=== PATIENT | female | born 1950 | race African-American/Black ===

== ENCOUNTER → 2016-07-09 | Outpatient (CLI) | payer MEDICARE | LOC: RAD 17:08 | PROVIDERS: ATTEND Internal Medicine Medical Oncology | DX: C91.10 Chronic lymphocytic leukemia of B-cell type not having achieved remission (principal) | CPT/HCPCS: 78815; A9552 ==

== ENCOUNTER 2018-09-03 12:46 | Emergency (ER) | payer MEDICARE ==
[2018-09-03 13:57] LABS: AMORPHOUS SEDIMENT,URINE TRACE /HPF; APPEARANCE,URINE SLIGHTLY-CLOUDY; BILIRUBIN,URINE NEGATIVE (NEGATIVE); COLOR,URINE YELLOW; GLUCOSE, URINE NEGATIVE (NEGATIVE); KETONES,URINE NEGATIVE (NEGATIVE); LEUKOCYTE ESTERASE,URINE NEGATIVE (NEGATIVE); NITRITE,URINE NEGATIVE (NEGATIVE); PROTEIN,URINE 30 mg/dL (NEGATIVE); URINE SPECIFIC GRAVITY 1.021
--- NOTE | 2018-09-03 14:27 | ER Document Report ---
ED General - General Chief Complaint: Weakness Stated Complaint: WEAKNESS Time Seen by Provider: 09/03/18 14:21 Primary Care Provider: VINCENZO MUSE MD [Primary Care Provider] - 09/05/18 Notes: Patient says she was referred here to be seen because she is losing too much weight. Patient has history of chronic lymphocytic leukemia and sees Dr. Chavarria. She had an appointment today to have an infusion but they sent her here because they said she had lost too much weight. Patient says that she weighed 113 pounds when she was seen at that office on August 06. Today here in the emergency department, patient weighs about 106. Patient says that she was told by Dr. Chavarria that she has lost 20 pounds since March. Patient was scheduled for her infusion again today, but they would not give it to her and sent her here. Patient says she is been coughing up a lot of cold for the past couple of months. Denies any urinary tract symptoms. Denies any fever. TRAVEL OUTSIDE OF THE [place] IN LAST 30 DAYS: No - Related Data Allergies/Adverse Reactions: No Known Allergies Allergy (Verified 09/03/18 12:47) Past Medical History - Social History Smoking Status: Current Every Day Smoker Family History: Reviewed & Not Pertinent, DM - Past Medical History Cardiac Medical History: Reports: Hx Hypercholesterolemia, Hx Hypertension Pulmonary Medical History: Reports: Hx COPD Malignancy Medical History: Reports: Hx Leukemia - Chronic lymphocytic leukemia Past Surgical History: Reports: Hx Gynecologic Surgery - ectopic , Hx Hysterectomy, Hx Vascular Surgery - PORT A CATH - Immunizations Hx Diphtheria, Pertussis, Tetanus Vaccination: Yes Review of Systems - Review of Systems Notes: REVIEW OF SYSTEMS: CONSTITUTIONAL : Denies fever. Says she does feel weak all over. EENT: Denies eye, ear, nose or mouth or throat pain or other symptoms. CARDIOVASCULAR: Denies chest pain. RESPIRATORY: Patient has a chronic cough and production of phlegm for a couple of months. GASTROINTESTINAL: Denies abdominal pain or nausea, vomiting, or diarrhea. GENITOURINARY: Denies difficulty or painful urinating, urinary frequency, blood in urine. MUSCULOSKELETAL: Denies back or neck pain. Denies joint pain or swelling. SKIN: Denies rash or skin lesions. NEUROLOGICAL: Denies LOC or altered mental status. Denies headache. Denies sensory loss or motor deficits. ALL OTHER SYSTEMS REVIEWED AND NEGATIVE. Physical Exam - Vital signs Vitals: Temp Pulse Resp BP Pulse Ox 98.0 F 102 H 20 110/73 94 09/03/18 13:10 09/03/18 13:10 09/03/18 13:10 09/03/18 13:10 09/03/18 13:10 Interpretation: Normal Notes: PHYSICAL EXAMINATION: GENERAL: Well-appearing, in no acute distress. Very thin, cachectic looking. Vital signs are all normal. HEAD: Atraumatic, normocephalic. EYES: Pupils equal round and reactive to light, extraocular movements intact. ENT: oropharynx clear without exudates. Moist mucous membranes. NECK: Normal range of motion, supple. LUNGS: Breath sounds decreased bilaterally. Port in left upper chest. HEART: Regular rate and rhythm without murmurs. ABDOMEN: Soft, nontender. No guarding or rebound. No masses. Almost emaciated extremities and body. BACK: No tenderness throughout entire back. EXTREMITIES: Normal range of motion without pain. Is able to stand and walk. PSYCH: Normal mood, normal affect. SKIN: Warm, dry, no rashes. Course - Re-evaluation Re-evalutation: 09/03/18 17:40 Discussed the patient with her primary care provider, Dr. Muse. She has an appointment to see him in a couple of days in the office. No further workup requested. - Vital Signs Vital signs: Temp Pulse Resp BP Pulse Ox 98.0 F 85 19 121/84 94 09/03/18 13:10 09/03/18 15:43 09/03/18 17:31 09/03/18 17:31 09/03/18 17:31 - Laboratory Result Diagrams: 09/03/18 15:11 09/03/18 15:11 Laboratory results interpreted by me: 09/03/18 09/03/18 09/03/18 13:35 15:11 15:11 WBC 28.0 H RDW 16.0 H Seg Neuts % (Manual) 13 L Lymphocytes % (Manual) 75 H Abs Lymphs (Manual) 22.7 H Abs Monocytes (Manual) 1.7 H Est GFR (Non-Af Amer) 52 L Calcium 11.1 H Urine Protein 30 H Urine Urobilinogen 2.0 H Discharge - Discharge Clinical Impression: Weight loss, Chronic lymphocytic leukemia Condition: Stable Disposition: HOME, SELF-CARE Additional Instructions: Weight loss: You were evaluated today for weight loss over the past several months. NORMAL EXAM AND WORKUP: At this time, except for your elevated white cell count from your leukemia, your examination and workup show no significant abnormality. No significant abnormal physical findings were noted. All laboratory, EKG, and imaging (x-ray, CT scans, ultrasound) studies that were ordered show no significant abnormality. Although your examination and all studies that were ordered showed no significant abnormal finding, there are no examinations and no studies that are 100% accurate. There is always the possibility that some abnormality could exist and not be detected with physical examination or within the limits and capabilities of laboratory and other studies. You should return or follow up as you were instructed on your visit today for further evaluation if your symptoms do not resolve. FOLLOW-UP CARE: If you have been referred to a physician for follow-up care, call the physicians office for an appointment as you were instructed or within the next two days. If you experience worsening or a significant change in your symptoms, notify the physician immediately or return to the Emergency Department at any time for re-evaluation. I spoke with Dr. Muse, patient's primary care provider, he will follow-up as an outpatient. Referrals: VINCENZO MUSE MD [Primary Care Provider] - 09/05/18
--- NOTE | 2018-09-03 15:18 | RADIOLOGY REPORT (SQ) ---
EXAM DESCRIPTION: CHEST 2 VIEWS COMPLETED DATE/TIME: 09/03/2018 3:05 pm REASON FOR STUDY: Weight loss and productive cough COMPARISON: PET-CT of 07/09/2016 Two-view chest 07/21/2015 EXAM PARAMETERS: NUMBER OF VIEWS: two views TECHNIQUE: Digital Frontal and Lateral radiographic views of the chest acquired. RADIATION DOSE: NA LIMITATIONS: none FINDINGS: LUNGS AND PLEURA: Lungs are hyperinflated with flattening in the hemidiaphragms. No acute infiltrates. No pleural effusion. No pneumothorax. MEDIASTINUM AND HILAR STRUCTURES: No masses or contour abnormalities. HEART AND VASCULAR STRUCTURES: Heart normal size. No evidence for failure. BONES: Old healed left posterior upper rib fractures HARDWARE: Left-sided permanent central line tip superior vena cava OTHER: No other significant finding. IMPRESSION: No acute findings TECHNICAL DOCUMENTATION: JOB ID: [id number] [employer]- All Rights Reserved Reading location - IP/workstation name: [email or web address]
[2018-09-03 15:27] LABS: HEMATOCRIT 43.6 % (36.0-47.0); HEMOGLOBIN 14.7 g/dL (12.0-15.5); MEAN CORPUSCULAR HEMOGLOBIN 31.6 pg (27.0-33.4); MEAN CORPUSCULAR HGB CONC 33.6 g/dL (32.0-36.0); MEAN CORPUSCULAR VOLUME 94 fl (80-97); PLATELET COUNT 190 10^3/uL (150-450); RED BLOOD COUNT 4.64 10^6/uL (3.72-5.28)
[2018-09-03 15:42] LABS: ABSOLUTE LYMPHOCYTES# (MANUAL) 22.7 10^3/uL (0.5-4.7); ABSOLUTE MONOCYTES # (MANUAL) 1.7 10^3/uL (0.1-1.4); ABSOLUTE NEUTROPHILS# (MANUAL) 3.6 10^3/uL (1.7-8.2); BASOPHILS % (MANUAL) 0 % (0-2); EOSINOPHILS % (MANUAL) 0 % (0-6); MONOCYTES % (MANUAL) 6 % (3-13); SEGMENTED NEUTROPHILS % (MAN) 13 % (42-78); TOTAL CELLS COUNTED 100
[2018-09-03 15:43] LABS: ANISOCYTOSIS 1+; PLATELET COMMENT ADEQUATE; TOXIC GRANULATION SLIGHT
[2018-09-03 15:44] LABS: LYMPHOCYTES % (MANUAL) 75 % (13-45)
[2018-09-03 15:57] LABS: ALANINE AMINOTRANSFERASE 14 U/L (9-52); ALKALINE PHOSPHATASE 89 U/L (38-126); ANION GAP 12 (5-19); ASPARTATE AMINO TRANSFERASE 23 U/L (14-36); BILIRUBIN,DIRECT 0.3 mg/dL (0.0-0.4); BILIRUBIN,TOTAL 0.6 mg/dL (0.2-1.3); BLOOD UREA NITROGEN 16 mg/dL (7-20); CALCIUM 11.1 mg/dL (8.4-10.2); CARBON DIOXIDE 25 mmol/L (22-30); CHLORIDE 105 mmol/L (98-107); CREATINE KINASE 37 U/L (30-135); GLUCOSE 88 mg/dL (75-110); POTASSIUM 3.8 mmol/L (3.6-5.0); SODIUM 141.5 mmol/L (137-145); TOTAL PROTEIN 6.3 g/dL (6.3-8.2)
[2018-09-03 16:01] LABS: CREATINE KINASE MB 0.95 ng/mL (<4.55); TROPONIN I < 0.012 ng/mL
--- NOTE | 2018-09-03 16:02 | EKG REPORT ---
SEVERITY:- ABNORMAL ECG - SINUS RHYTHM LOW VOLTAGE IN FRONTAL LEADS CONSIDER ANTEROSEPTAL INFARCT NONSPECIFIC T ABNORMALITIES, LATERAL LEADS : Confirmed by: Ryan Davenport MD 03-Sep-2018 16:01:26
[2018-09-03 17:35] VITALS: BP 121/84
[2018-09-04 11:01] LABS: PATH REVIEW PATHOLOGIST REVIEWED
== END 2018-09-03 17:58 | disposition home or self-care (01) ==
LOC: ER 12:46
DX: C91.10 Chronic lymphocytic leukemia of B-cell type not having achieved remission (principal); R63.4 Abnormal weight loss; R53.1 Weakness; F17.200 Nicotine dependence, unspecified, uncomplicated; I10 Essential (primary) hypertension; J44.9 Chronic obstructive pulmonary disease, unspecified
CPT/HCPCS: 36415; 36591; 71046; 80053; 81001; 82550; 82553; 84484; 85025; 87040; 93005; 93010; 99284

== ENCOUNTER → 2018-11-10 | Outpatient (CLI) | payer MEDICARE ==
--- NOTE | 2018-11-11 09:01 | RADIOLOGY REPORT (SQ) ---
EXAM DESCRIPTION: PET CT SKULL/THIGH COMPLETED DATE/TIME: 11/11/2018 4:05 am REASON FOR STUDY: (C91.90) LYMPHOID LEUKEMIA, UNSPECIFIED NOT HAVING ACHIEVED REMISSION C91.90 LYMP HOID LEUKEMIA, UNSPECIFIED NOT HAVING ACHIEVED RE COMPARISON: 07/09/2016 RADIONUCLIDE AND DOSE: 9.68 mCi F18 FDG The route of agent administration: Intravenous FASTING BLOOD SUGAR: 105 mg/dl CONTRAST TYPE AND DOSE: No CT contrast given. TECHNIQUE: Blood glucose level was verified. Above dose of FDG was injected intravenously. 2-D seg mented attenuation correction images were obtained from the base of the skull to the midthighs. Nonc ontrast CT images were obtained for attenuation correction and fusion with emission images. CT image s were performed without oral or intravenous contrast and are not sensitive for parenchymal lesions. A series of overlapping emission PET images were obtained. Images reviewed and manipulated at [facility] work station by the radiologist. Images stored on PACS. LIMITATIONS: None. FINDINGS: HEAD AND NECK: No areas of abnormal metabolic activity in the soft tissues of the head and neck. CHEST: Approximately 2.2 x 3.8 cm conglomerate level 1 nodes not present on the prior. 1.7 SUV. 2 cm paraesophageal node, 1.8 SUV. Enlarged axillary nodes, largest on the left 1 x 1.6 cm, 1.3 SUV. ABDOMEN AND PELVIS: Upper abdominal and retroperitoneal adenopathy, difficult to quantify morphologic ally due to indistinct tissue planes. SUVs in the 3.2 range. PROXIMAL LOWER EXTREMITIES: No areas of abnormal metabolic activity in the soft tissues of the lower extremities. BONES: Nothing acute. ADDITIONAL CT FINDINGS: Diffuse diverticulosis. Normal size spleen. OTHER: Liver activity 1.9 SUV. Blood pool 1.5 SUV. IMPRESSION: Worrisome for recurrent lymphoma. Adenopathy above and below the diaphragm with relativ pro low SUVs in the chest. TECHNICAL DOCUMENTATION: JOB ID: [id number] [employer]- All Rights Reserved Reading location - IP/workstation name: [email or web address]
== END ==
LOC: RAD 16:14
PROVIDERS: ATTEND Internal Medicine Medical Oncology
DX: C91.90 Lymphoid leukemia, unspecified not having achieved remission (principal)
CPT/HCPCS: 78815; A9552

== ENCOUNTER → 2019-07-31 | Outpatient (CLI) | payer MEDICARE ==
--- NOTE | 2019-08-01 12:08 | XCELERA REPORT ---
[address] [place] [facility] [address] Lower Extremity Venous Evaluation Procedure: Color flow and duplex imaging of the veins of the left lower extremity as well as the right Common Femoral vein. Right Sided Venous Evaluation The right common femoral vein is fully compressible. Spontaneous and phasic flow is present in the right common femoral vein. Left Sided Venous Evaluation Normal vessel filling wall to wall, compression and augmentation as well as Colour flow down to the infrageniculate veins. Interpretation Summary No duplex evidence of DVT or obstruction in the left lower extremity nor in the right Common Femoral vein. Name: NOELLE LOWRY Age: 68 yrs Gender: Female : 1950 Patient Status: Outpatient Patient Location: Study Date: 07/31/2019 03:24 PM Reason For Study: LLE PAIN/SWELLING Ordering Physician: SARAH LEAL Performed By: Marcus Rodriguez : SARAH LEAL > Luis Stapleton
== END ==
LOC: SP 14:34
PROVIDERS: ATTEND Nurse Practitioner Family
DX: M79.605 Pain in left leg (principal); M79.89 Other specified soft tissue disorders
CPT/HCPCS: 93971

== ENCOUNTER 2019-09-30 17:07 | Emergency (ER) | payer MEDICARE ==
--- NOTE | 2019-09-30 17:27 | ER Document Report ---
ED Respiratory Problem - General Chief Complaint: Breathing Difficulty Stated Complaint: BREATHING DIFFICULTY Time Seen by Provider: 09/30/19 17:25 Primary Care Provider: SARAH LEAL FNP-C [Primary Care Provider] - Follow up as needed Notes: 68-year-old woman presents to the emergency department with a history of COPD, CLL, hypertension, dyslipidemia, and chemotherapy for leukemia. She presents today with shortness of breath and increased work of breathing. She denies chest pain, palpitations or nausea and vomiting. TRAVEL OUTSIDE OF THE [place] IN LAST 30 DAYS: No - Related Data Allergies/Adverse Reactions: No Known Allergies Allergy (Verified 09/03/18 12:47) Past Medical History - Social History Smoking Status: Unknown if Ever Smoked Family History: Reviewed & Not Pertinent, DM - Past Medical History Cardiac Medical History: Reports: Hx Hypercholesterolemia, Hx Hypertension Pulmonary Medical History: Reports: Hx COPD Renal/ Medical History: Denies: Hx Peritoneal Dialysis Malignancy Medical History: Reports: Hx Leukemia - Chronic lymphocytic leukemia Past Surgical History: Reports: Hx Gynecologic Surgery - ectopic , Hx Hysterectomy, Hx Vascular Surgery - PORT A CATH - Immunizations Hx Diphtheria, Pertussis, Tetanus Vaccination: Yes Review of Systems - Review of Systems Notes: Constitutional: Negative for fever. HENT: Negative for sore throat. Eyes: Negative for visual changes. Cardiovascular: Negative for chest pain. Respiratory + shortness of breath. Gastrointestinal: Negative for abdominal pain, vomiting or diarrhea. Genitourinary: Negative for dysuria. Musculoskeletal: Negative for back pain. Skin: Negative for rash. Neurological: Negative for headaches, weakness or numbness. 10 point ROS negative except as marked above and in HPI. Physical Exam - Vital signs Vitals: Resp 21 H 09/30/19 17:11 - Notes Notes: PHYSICAL EXAMINATION: Physical Exam: General: Thin chronically ill-appearing 68-year-old woman + respiratory distress HEENT: NC/AT, pupils equal round and reactive to light, MM moist,nares clear, oropharynx clear, airway patent Neck: supple, no adenopathy, no masses. Good range of motion Lungs: Mild wheezing bilaterally, increased work to breathe, use of accessory muscles of respiration. CVS: Regular rate and rhythm no murmur gallop or rub Abdomen: Soft, active, nontender, no masses, no hepatosplenomegaly Ext: No edema, clubbing or cyanosis. Neuro: Alert and responsive, moving all 4 extremities on command, cranial nerves intact, no focal findings Skin: Intact no open lesions, no rash PSYCH: Normal mood, normal affect. Course - Re-evaluation Re-evalutation: 09/30/19 20:44 Patient is markedly improved after DuoNeb nebulizer treatment and lorazepam 1 mg IV. She states that she has had a similar episode in the past. She has a history of COPD denies cough fever or preliminary symptoms. Will discharge home with albuterol rescue inhaler. She is doing much better on room air, O2 sat of 97%. - Vital Signs Vital signs: Temp Pulse Resp BP Pulse Ox 98.6 F 26 H 148/81 H 97 09/30/19 17:59 09/30/19 21:01 09/30/19 21:00 09/30/19 21:01 - Laboratory Result Diagrams: 09/30/19 17:46 09/30/19 17:46 Laboratory results interpreted by me: 09/30/19 09/30/19 17:46 17:46 RBC 3.05 L Hgb 10.2 L Hct 29.8 L MCV 98 H RDW 17.2 H Glucose 111 H Total Protein 6.1 L - Diagnostic Test Radiology reviewed: Image reviewed, Reports reviewed - Chest x-ray: Small right pleural effusion otherwise no acute findings. Discharge - Discharge Clinical Impression: COPD exacerbation, Respiratory distress, CLL (chronic lymphocytic leukemia), History of chemotherapy Condition: Good Disposition: HOME, SELF-CARE Instructions: Chronic Obstructive Lung Disease ([facility]) Additional Instructions: We recurred treated for exacerbation of COPD tonight in the emergency department. Please use the inhaler 2 puffs every 6 hours as needed for shortness of breath. Please follow-up with your oncologist, given that you had a similar episode after chemotherapy in the past. If you are having severe episodes of shortness of breath or worsening symptoms you may return to the emergency department for further evaluation and treatment. HOME CARE INSTRUCTIONS & INFORMATION: Thank you for choosing us for your medical needs. We hope you're satisfied with the care you received. After you leave, you must properly care for your problem and, at the same time, observe its progress. Any condition can change. Some illnesses can change rapidly over hours or days. If your condition worsens, return to the Emergency Department or see your physician promptly. ABOUT YOUR X-RAYS AND EKG'S: If you had an EKG or X-rays taken, they have been read by the Emergency Physician. The X-rays and EKG's will also be read by a Radiologist or Options Advisor within 24 hours. If discrepancies are noted, you w ill be notified by telephone. Please be certain the ED has a correct telephone number & address where you can be reached. Also, realize that some fractures or abnormalities do not show up on initial X-rays. If your symptoms continue, see your physician. ABOUT YOUR LABORATORY TEST: If you had laboratory tests, the results have been reviewed by the Emergency Physician. Some test results (for example cultures) may not be available for several days. You will be contacted if any test result shows you need additional treatment. Please be certain the ED has a correct telephone number and address where you can be reached. ABOUT YOUR MEDICATIONS: You will receive instructions on how to take your medicine on the prescription label you receive. Additional information may be provided by the Pharmacy. If you have questions afterwards, call the ED for clarification or further instructions. Some prescribed medications may cause drowsiness. Do not perform tasks such as driving a car or operating machinery without consulting your Pharmacist. If you feel you need a refill of pain medic ation, your condition will need re-evaluation. Please do not call for a refill of any medication. ABOUT YOUR SIGNATURE: Signature of this document acknowledges to followin. Understanding that you received emergency treatment and that you may be released before al medical problems are known or treated. Please be certain the ED has a correct phone number & address where you can be reached. 2. Acknowledgement that you will arrange for follow-up care as recommended. 3. Authorization for the Emergency Physician to provide information to your follow-up Physician in order to maximize your care. AT ANY TIME, IF YOUR SYMPTOMS CHANGE SIGNIFICANTLY OR WORSEN OR YOU DEVELOP NEW SYMPTOMS, RETURN TO THE EMERGENCY DEPARTMENT IMMEDIATELY FOR RE-EVALUATION. OUR GOAL IS TO PROVIDE EXCELLENT MEDICAL CARE! WE HOPE THAT WE HAVE MET YOUR EXPECTATIONS DURING YOUR EMERGENCY DEPARTMENT VISIT AND THAT YOU FEEL YOU HAVE RECEIVED EXCELLENT CARE! Prescriptions: Albuterol Sulfate [Proair HFA Inhalation Aerosol 8.5 gm MDI] 2 puff IH Q4H PRN #1 mdi PRN Reason: Referrals: SARAH LEAL FNP-C [Primary Care Provider] - Follow up as needed
[2019-09-30] MEDS ORDERED: IPRATROPIUM/ALBUTEROL 0.5-2.5 MG/3 ML AMPUL NEB ONE ×2 (17:31→18:13)
--- NOTE | 2019-09-30 17:37 | RADIOLOGY REPORT (SQ) ---
EXAM DESCRIPTION: CHEST SINGLE VIEW IMAGES COMPLETED DATE/TIME: 09/30/2019 5:21 pm REASON FOR STUDY: er 7 diff breathing COMPARISON: 09/03/2018 EXAM PARAMETERS: NUMBER OF VIEWS: One view. TECHNIQUE: Single frontal radiographic view of the chest acquired. RADIATION DOSE: NA LIMITATIONS: None. FINDINGS: LUNGS AND PLEURA: New finding of very small right pleural effusion. No acute pulmonary c onsolidation. No pneumothorax. MEDIASTINUM AND HILAR STRUCTURES: No masses. Contour normal. HEART AND VASCULAR STRUCTURES: Heart normal in size. Normal vasculature. BONES: The osseous structures are stable in appearance. Old left healed rib fractures. HARDWARE: Left Krbbpv-V-Gwun catheter, unchanged finding. OTHER: No other significant finding. IMPRESSION: 1. Very small right pleural effusion. No acute pulmonary consolidation. TECHNICAL DOCUMENTATION: JOB ID: [id number] 2010 [employer]- All Rights Reserved Reading location - IP/workstation name: [email or web address]
[2019-09-30 18:33] LABS: HEMATOCRIT 29.8 % (36.0-47.0); HEMOGLOBIN 10.2 g/dL (12.0-15.5); MEAN CORPUSCULAR HEMOGLOBIN 33.4 pg (27.0-33.4); MEAN CORPUSCULAR HGB CONC 34.3 g/dL (32.0-36.0); MEAN CORPUSCULAR VOLUME 98 fl (80-97); PLATELET COUNT 204 10^3/uL (150-450); RED BLOOD COUNT 3.05 10^6/uL (3.72-5.28); RED CELL DISTRIBUTION WIDTH 17.2 % (11.5-14.0); WHITE BLOOD COUNT 5.2 10^3/uL (4.0-10.5)
[2019-09-30 18:55] LABS: ALBUMIN 3.9 g/dL (3.5-5.0); ALKALINE PHOSPHATASE 90 U/L (38-126); ANION GAP 5 (5-19); ASPARTATE AMINO TRANSFERASE 22 U/L (14-36); BILIRUBIN,TOTAL 0.6 mg/dL (0.2-1.3); BLOOD UREA NITROGEN 13 mg/dL (7-20); CALCIUM 9.1 mg/dL (8.4-10.2); CARBON DIOXIDE 27 mmol/L (22-30); CHLORIDE 106 mmol/L (98-107); GLUCOSE 111 mg/dL (75-110); TOTAL PROTEIN 6.1 g/dL (6.3-8.2)
[2019-09-30 18:58] LABS: ABSOLUTE MONOCYTES # (MANUAL) 0.6 10^3/uL (0.1-1.4); BASOPHILS % (MANUAL) 0 % (0-2); EOSINOPHILS % (MANUAL) 2 % (0-6); LYMPHOCYTES % (MANUAL) 37 % (13-45); MONOCYTES % (MANUAL) 11 % (3-13); SEGMENTED NEUTROPHILS % (MAN) 49 % (42-78); TOTAL CELLS COUNTED 100
[2019-09-30 19:01] LABS: ANISOCYTOSIS 1+; OVALOCYTES SLIGHT; PLATELET COMMENT ADEQUATE; POIKILOCYTOSIS SLIGHT; TEAR DROP CELLS SLIGHT
[2019-09-30] MEDS ORDERED: DEXAMETHASONE SOD PHOS INJ 10 MG/1 ML VIAL IV ONE (20:52)
[2019-09-30] MEDS ORDERED: ALBUTEROL SULFATE HFA (90 MCG/PUFF) 8 GM MDI (1 MDI/ER DISP) IH ONE (21:00)
[2019-09-30 21:39] VITALS: BP 148/81
--- NOTE | 2019-10-01 10:07 | EKG REPORT ---
SEVERITY:- ABNORMAL ECG - SINUS TACHYCARDIA LOW VOLTAGE IN FRONTAL LEADS CONSIDER ANTEROSEPTAL INFARCT : Confirmed by: Ayleen Bragg MD 01-Oct-2019 10:07:01
== END 2019-09-30 22:38 | disposition home or self-care (01) ==
LOC: ER 17:07
DX: J44.1 Chronic obstructive pulmonary disease with (acute) exacerbation (principal); C91.10 Chronic lymphocytic leukemia of B-cell type not having achieved remission; J90 Pleural effusion, not elsewhere classified; R06.02 Shortness of breath; I10 Essential (primary) hypertension; Z92.21 Personal history of antineoplastic chemotherapy
CPT/HCPCS: 93005; 36591; 94640; 99285; 96374; 36415; 87040; 85025; 80053; 84484; 71045; 93010; J1100; A9270; J1642; J7620

== ENCOUNTER 2019-10-03 09:30 | Emergency (ER) | payer MEDICARE ==
[2019-10-03 11:11] LABS: HEMATOCRIT 34.2 % (36.0-47.0); HEMOGLOBIN 11.3 g/dL (12.0-15.5); MEAN CORPUSCULAR HEMOGLOBIN 32.7 pg (27.0-33.4); MEAN CORPUSCULAR HGB CONC 33.2 g/dL (32.0-36.0); MEAN CORPUSCULAR VOLUME 99 fl (80-97); PLATELET COUNT 241 10^3/uL (150-450); RED BLOOD COUNT 3.47 10^6/uL (3.72-5.28); RED CELL DISTRIBUTION WIDTH 17.3 % (11.5-14.0); WHITE BLOOD COUNT 6.2 10^3/uL (4.0-10.5)
[2019-10-03 11:14] LABS: APPEARANCE,URINE CLOUDY; BILIRUBIN,URINE NEGATIVE (NEGATIVE); COLOR,URINE COLORLESS; GLUCOSE, URINE NEGATIVE (NEGATIVE); KETONES,URINE NEGATIVE (NEGATIVE); LEUKOCYTE ESTERASE,URINE NEGATIVE (NEGATIVE); NITRITE,URINE NEGATIVE (NEGATIVE); PROTEIN,URINE NEGATIVE (NEGATIVE); URIC ACID CRYSTALS,URINE TOO NUMEROUS TO CNT /HPF; UROBILINOGEN,URINE NEGATIVE mg/dL (<2.0)
[2019-10-03 11:17] LABS: ALBUMIN 4.6 g/dL (3.5-5.0); ALKALINE PHOSPHATASE 71 U/L (38-126); ANION GAP 8 (5-19); ASPARTATE AMINO TRANSFERASE 20 U/L (14-36); BILIRUBIN,TOTAL 0.5 mg/dL (0.2-1.3); BLOOD UREA NITROGEN 10 mg/dL (7-20); CALCIUM 10.1 mg/dL (8.4-10.2); CARBON DIOXIDE 27 mmol/L (22-30); CHLORIDE 105 mmol/L (98-107); GLUCOSE 131 mg/dL (75-110); POTASSIUM 3.8 mmol/L (3.6-5.0); TOTAL PROTEIN 6.7 g/dL (6.3-8.2)
[2019-10-03] MEDS ORDERED: METHYLPREDNISOLONE INJ 125 MG/2 ML SDV IV ONE (11:19)
[2019-10-03] MEDS ORDERED: IPRATROPIUM/ALBUTEROL 0.5-2.5 MG/3 ML AMPUL NEB ONE (11:19)
[2019-10-03] MEDS ORDERED: NORMAL SALINE 500 ML IV ONE (11:20)
--- NOTE | 2019-10-03 11:27 | ER Document Report ---
ED General - General Chief Complaint: Breathing Difficulty Stated Complaint: SHORTNESS OF BREATH Time Seen by Provider: 10/03/19 10:31 Primary Care Provider: VINCENZO MUSE MD [Primary Care Provider] - Follow up as needed TRAVEL OUTSIDE OF THE [place] IN LAST 30 DAYS: No - HPI Notes: 68-year-old female patient of Dr. Muse presents to the emergency department with a history of COPD, CLL, hypertension, dyslipidemia, and chemotherapy for leukemia. Seen here [address] Bridges with AECOPD. Was improved after nebs at that time and sent home. Recently stopped smoking. Not regularly on home O2. She presents today with shortness of breath and increased work of breathing. She denies fever, chest pain, palpitations or nausea and vomiting. Now coughing up thick white sputum. TRAVEL OUTSIDE OF THE [place] IN LAST 30 DAYS: No - Related Data Allergies/Adverse Reactions: No Known Allergies Allergy (Verified 09/03/18 12:47) Past Medical History - General Information source: Patient - Social History Smoking Status: Former Smoker Chew tobacco use (# tins/day): No Frequency of alcohol use: None Drug Abuse: None Family History: Reviewed & Not Pertinent, DM Patient has suicidal ideation: No Patient has homicidal ideation: No - Past Medical History Cardiac Medical History: Reports: Hx Hypercholesterolemia, Hx Hypertension Pulmonary Medical History: Reports: Hx COPD Renal/ Medical History: Denies: Hx Peritoneal Dialysis Malignancy Medical History: Reports: Hx Leukemia - Chronic lymphocytic leukemia Past Surgical History: Reports: Hx Gynecologic Surgery - ectopic , Hx Hysterectomy, Hx Vascular Surgery - PORT A CATH - Immunizations Hx Diphtheria, Pertussis, Tetanus Vaccination: Yes Review of Systems - Review of Systems Notes: Constitutional: Negative for fever. HENT: Negative for sore throat. Eyes: Negative for visual changes. Cardiovascular: Negative for chest pain. Respiratory: As per HPI. Gastrointestinal: Negative for abdominal pain, vomiting or diarrhea. Genitourinary: Negative for dysuria. Musculoskeletal: Negative for back pain. Skin: Negative for rash. Neurological: Negative for headaches, focal weakness or numbness. 10 point ROS negative except as marked above and in HPI. Physical Exam - Vital signs Vitals: Temp Resp 97.8 F 25 H 10/03/19 09:24 10/03/19 09:24 - Notes Notes: Remote Exam Using Telemedicine System GENERAL: Frail elderly female who appears tachypneic and mild respiratory distress. SKIN: no rashes. HEAD: Normocephalic atraumatic. EYES: PERRL. EOMI. Conjunctivae and sclerae clear. NOSE: CLEAR. MOUTH: Moist mucosa. Good dentition. No stridor or edema. No drooling. NECK: Full ROM. No visible masses or thyromegaly. No JVD. BACK: Symmetrical. CHEST: Mildly tachypneic. Respirations mildly labored. Expands symmetrical. ABDOMEN: Non-distended. GENITALIA: Deferred. EXTREMITIES: No edema. NEUROLOGICAL: GCS 15. Alert and oriented x3. Fluent speech. Cranial nerves II through XII intact. Motor and cerebellar normal. PSYCHIATRIC: Appropriate affect. Course - Vital Signs Vital signs: Temp Pulse Resp BP Pulse Ox 97.8 F 23 H 164/83 H 94 10/03/19 10:33 10/03/19 10:01 10/03/19 10:01 10/03/19 10:01 - Laboratory Result Diagrams: 10/03/19 10:15 10/03/19 10:15 Laboratory results interpreted by me: 10/03/19 10/03/19 10:15 10:15 RBC 3.47 L Hgb 11.3 L Hct 34.2 L MCV 99 H RDW 17.3 H Seg Neuts % (Manual) 32 L Monocytes % (Manual) 25 H Abs Monocytes (Manual) 1.6 H Est GFR (MDRD) Non-Af 58 L Glucose 131 H Discharge - Discharge Clinical Impression: COPD exacerbation Acute bronchitis Qualifiers: Bronchitis organism: unspecified organism Qualified Code(s): J20.9 - Acute bronchitis, unspecified Condition: Stable Disposition: HOME, SELF-CARE Additional Instructions: Continue to use your inhaler 2 puffs every 4 hours. You are receiving 2 new prescriptions today including prednisone and doxycycline. Take these as prescribed. Do not smoke. Return here as needed for new or worsening symptoms: Increased difficulty breathing Uncontrolled vomiting High fever or shaking chills Overall worsening See your primary care provider within the next 5 to 7 days for recheck. Prescriptions: Prednisone [Deltasone 20 mg Tablet] 2 tab PO DAILY 5 Days tablet Doxycycline Monohydrate 100 mg PO BID #20 capsule Referrals: VINCENZO MUSE MD [Primary Care Provider] - Follow up as needed
[2019-10-03 11:34] LABS: ABSOLUTE LYMPHOCYTES# (MANUAL) 2.5 10^3/uL (0.5-4.7); ABSOLUTE MONOCYTES # (MANUAL) 1.6 10^3/uL (0.1-1.4); BASOPHILS % (MANUAL) 0 % (0-2); EOSINOPHILS % (MANUAL) 2 % (0-6); LYMPHOCYTES % (MANUAL) 32 % (13-45); SEGMENTED NEUTROPHILS % (MAN) 32 % (42-78); TOTAL CELLS COUNTED 100
[2019-10-03 11:36] LABS: ANISOCYTOSIS 1+
[2019-10-03 11:37] LABS: MONOCYTES % (MANUAL) 25 % (3-13); OVALOCYTES 1+; PLATELET COMMENT ADEQUATE; POIKILOCYTOSIS 1+; SCHISTOCYTES SLIGHT; TEAR DROP CELLS SLIGHT
--- NOTE | 2019-10-03 11:47 | RADIOLOGY REPORT (SQ) ---
EXAM DESCRIPTION: CHEST SINGLE VIEW IMAGES COMPLETED DATE/TIME: 10/03/2019 11:37 am REASON FOR STUDY: dyspnea, COPD COMPARISON: 09/30/2019 and 09/03/2018. NUMBER OF VIEWS: One view. TECHNIQUE: Single frontal radiographic view of the chest acquired. LIMITATIONS: None. FINDINGS: LUNGS AND PLEURA: No opacities, masses or pneumothorax. Chronic blunting in the right cos tophrenic angle. No large pleural effusion. Attenuated blood vessels and flattened blank-diaphragms. MEDIASTINUM AND HILAR STRUCTURES: No masses. Contour normal. HEART AND VASCULAR STRUCTURES: Heart normal in size. Normal vasculature. BONES: No acute findings. HARDWARE: Vascular port. OTHER: No other significant finding. IMPRESSION: COPD. NO ACUTE RADIOGRAPHIC FINDING IN THE CHEST. TECHNICAL DOCUMENTATION: JOB ID: [id number] 2010 [employer]- All Rights Reserved Reading location - IP/workstation name: [email or web address]
[2019-10-03 13:21] VITALS: BP 139/76
--- NOTE | 2019-10-03 20:02 | EKG REPORT ---
SEVERITY:- ABNORMAL ECG - SINUS TACHYCARDIA LOW VOLTAGE IN FRONTAL LEADS CONSIDER ANTEROSEPTAL INFARCT BORDERLINE T WAVE ABNORMALITIES : Confirmed by: Ayleen Bragg MD 03-Oct-2019 20:01:05
[2019-10-06 14:00] LABS: PATH REVIEW PATHOLOGIST REVIEWED
== END 2019-10-03 13:47 | disposition home or self-care (01) ==
LOC: ER 09:30
DX: J44.1 Chronic obstructive pulmonary disease with (acute) exacerbation (principal); J20.9 Acute bronchitis, unspecified; E78.00 Pure hypercholesterolemia, unspecified; I10 Essential (primary) hypertension; Z90.710 Acquired absence of both cervix and uterus; Z87.891 Personal history of nicotine dependence
CPT/HCPCS: 93005; 94640; 99285; 96361; 96374; 36415; 85025; 80053; 81001; 71045; 93010; J2930; J7040; A9270; J7620

== ENCOUNTER 2020-03-19 09:32 | Emergency (ER) | payer MEDICARE ==
--- NOTE | 2020-03-19 10:20 | ER Document Report ---
ED Medical Screen (RME) - General Chief Complaint: Abnormal Lab Results Stated Complaint: LEG PAIN Time Seen by Provider: 03/19/20 10:18 Primary Care Provider: JERSEY HERNADEZ MD [Primary Care Provider] - Follow up as needed Notes: Patient is a 69-year-old female with a history of CLL under the care of Dr. Jones who was sent here to the emergency department for the chief complaint of low hemoglobin. Records indicate that 2 days ago the patient had a CBC drawn which did reveal a hemoglobin of 5.5. Patient reports increased weakness. Denies fever. Patient also has other complaints such as a buttock sore that is currently under treatment by the wound care center per the patient as well as the left leg pain. TRAVEL OUTSIDE OF THE [place] IN LAST 30 DAYS: No - Related Data Allergies/Adverse Reactions: No Known Allergies Allergy (Verified 09/03/18 12:47) Past Medical History - Social History Chew tobacco use (# tins/day): No Frequency of alcohol use: None Drug Abuse: None - Past Medical History Cardiac Medical History: Reports: Hx Hypercholesterolemia, Hx Hypertension Pulmonary Medical History: Reports: Hx COPD Renal/ Medical History: Denies: Hx Peritoneal Dialysis Malignancy Medical History: Reports: Hx Leukemia - Chronic lymphocytic leukemia Past Surgical History: Reports: Hx Gynecologic Surgery - ectopic , Hx Hysterectomy, Hx Vascular Surgery - PORT A CATH - Immunizations Hx Diphtheria, Pertussis, Tetanus Vaccination: Yes Physical Exam - Vital signs Vitals: Temp Pulse Resp BP Pulse Ox 98.0 F 88 20 117/60 97 03/19/20 09:43 03/19/20 09:43 03/19/20 09:43 03/19/20 09:43 03/19/20 09:43 Course - Re-evaluation Re-evalutation: 03/19/20 10:20 Order was placed to access Port-A-Cath and obtain labs as well as a type and screen. I have greeted and performed a rapid initial assessment of this patient. A comprehensive ED assessment and evaluation of the patient, analysis of test results and completion of the medical decision making process will be conducted by additional ED providers. - Vital Signs Vital signs: Temp Pulse Resp BP Pulse Ox 98.0 F 88 20 117/60 97 03/19/20 09:43 03/19/20 09:43 03/19/20 09:43 03/19/20 09:43 03/19/20 09:43 Doctor's Discharge - Discharge Referrals: JERSEY HERNADEZ MD [Primary Care Provider] - Follow up as needed
[2020-03-19 12:56] LABS: HEMATOCRIT 18.2 % (36.0-47.0); MEAN CORPUSCULAR HEMOGLOBIN 29.1 pg (27.0-33.4); MEAN CORPUSCULAR HGB CONC 29.4 g/dL (32.0-36.0); MEAN CORPUSCULAR VOLUME 99 fl (80-97); RED BLOOD COUNT 1.83 10^6/uL (3.72-5.28); RED CELL DISTRIBUTION WIDTH 26.5 % (11.5-14.0)
[2020-03-19 13:08] LABS: ALBUMIN 4.1 g/dL (3.5-5.0); ALKALINE PHOSPHATASE 114 U/L (38-126); ANION GAP 9 (5-19); ASPARTATE AMINO TRANSFERASE 24 U/L (14-36); BILIRUBIN,DIRECT 0.3 mg/dL (0.0-0.4); BILIRUBIN,TOTAL 0.9 mg/dL (0.2-1.3); BLOOD UREA NITROGEN 32 mg/dL (7-20); CALCIUM 8.6 mg/dL (8.4-10.2); CARBON DIOXIDE 24 mmol/L (22-30); CHLORIDE 108 mmol/L (98-107); GLUCOSE 97 mg/dL (75-110); POTASSIUM 4.3 mmol/L (3.6-5.0); TOTAL PROTEIN 6.2 g/dL (6.3-8.2)
[2020-03-19 13:23] LABS: PLATELET COUNT 44 10^3/uL (150-450)
[2020-03-19 13:24] LABS: ABSOLUTE LYMPHOCYTES# (MANUAL) 404.3 10^3/uL (0.5-4.7); ABSOLUTE MONOCYTES # (MANUAL) 4.1 10^3/uL (0.1-1.4); BASOPHILS % (MANUAL) 0 % (0-2); EOSINOPHILS % (MANUAL) 0 % (0-6); LYMPHOCYTES % (MANUAL) 98 % (13-45); MONOCYTES % (MANUAL) 1 % (3-13); SEGMENTED NEUTROPHILS % (MAN) 1 % (42-78); TOTAL CELLS COUNTED 100
[2020-03-19 13:25] LABS: PLATELET COMMENT DECREASED; SMUDGE CELLS PRESENT
[2020-03-19 13:26] LABS: ANISOCYTOSIS 3+
[2020-03-19 13:27] LABS: WHITE BLOOD COUNT 412.5 10^3/uL (4.0-10.5)
[2020-03-19 13:28] LABS: HEMOGLOBIN 5.3 g/dL (12.0-15.5)
[2020-03-19] MEDS ORDERED: NORMAL SALINE 250 ML IV PRN ×2 (14:08)
[2020-03-19] MEDS ORDERED: TRAMADOL HCL 50 MG TABLET PO ONE (14:36)
--- NOTE | 2020-03-19 14:38 | ER Document Report ---
ED General - General Chief Complaint: Abnormal Lab Results Stated Complaint: LEG PAIN Time Seen by Provider: 03/19/20 10:18 Primary Care Provider: JERSEY HERNADEZ MD [Primary Care Provider] - Follow up as needed TRAVEL OUTSIDE OF THE [place] IN LAST 30 DAYS: No - HPI Notes: Chief complaint: Weakness and abnormal lab results History of present illness: 69-year-old female followed by Dr. Jones at the oncology center with a history of CLL referred to the emergency department today because of significant anemia. The patient had been in the oncology clinic 2 days ago and had a hemoglobin of 5.3 g. She reports that she is extremely fatigued and becomes dyspneic with mild exertion. She denies fever chills. She denies chest pain. - Related Data Allergies/Adverse Reactions: No Known Allergies Allergy (Verified 09/03/18 12:47) Past Medical History - General Information source: Patient - Social History Smoking Status: Current Every Day Smoker Chew tobacco use (# tins/day): No Frequency of alcohol use: None Drug Abuse: None Family History: Reviewed & Not Pertinent, DM - Past Medical History Cardiac Medical History: Reports: Hx Hypercholesterolemia, Hx Hypertension Pulmonary Medical History: Reports: Hx COPD Renal/ Medical History: Denies: Hx Peritoneal Dialysis Malignancy Medical History: Reports: Hx Leukemia - Chronic lymphocytic leukemia Past Surgical History: Reports: Hx Gynecologic Surgery - ectopic , Hx H ysterectomy, Hx Vascular Surgery - PORT A CATH - Immunizations Hx Diphtheria, Pertussis, Tetanus Vaccination: Yes Review of Systems - Review of Systems Notes: Constitutional: Negative for fever. HENT: Negative for sore throat. Eyes: Negative for visual changes. Cardiovascular: Negative for chest pain. Respiratory: As per HPI. Gastrointestinal: Negative for abdominal pain, vomiting or diarrhea. Genitourinary: Negative for dysuria. Musculoskeletal: Chronic bone pain both lower legs. Skin: Chronic sacral decubitus under treatment by wound care center. Neurological: Negative for headaches, focal weakness or numbness. 10 point ROS negative except as marked above and in HPI. Physical Exam - Vital signs Vitals: Temp Pulse Resp BP Pulse Ox 98.0 F 88 20 117/60 97 03/19/20 09:43 03/19/20 09:43 03/19/20 09:43 03/19/20 09:43 03/19/20 09:43 - Notes Notes: GENERAL: Frail elderly female appearing somewhat chronically ill. SKIN: Pallor noted. Good turgor no rashes. HEAD: Normocephalic atraumatic. EYES: PERRLA. EOMI. Conjunctivae pale. EARS: CANALS AND TMS CLEAR. NOSE: CLEAR. MOUTH: Moist mucosa. Poor dentition. No stridor or edema. No drooling. NECK: Supple. No masses or thyromegaly. No adenopathy. Carotids 2+ without bruits. No JVD. BACK: Surgical packing present sacral area per wound clinic. CHEST: Respirations unlabored. Breath sounds clear and symmetrical. HEART: Regular rhythm. No murmur gallop or rub. ABDOMEN: Soft nontender without masses, organomegaly or rebound. Bowel sounds normally active. No bruits. GENITALIA: Deferred. EXTREMITIES: No edema. No calf tenderness. Cap refill less than 1.5 seconds. Dorsalis pedis and posterior tibial pulses 3+ and symmetrical. NEUROLOGICAL: GCS 15. Alert and oriented x3. Fluent speech. Cranial nerves II through XII intact. Sensorimotor and cerebellar normal. Normal tone. PSYCHIATRIC: Appropriate affect. Course - Re-evaluation Re-evalutation: 03/19/20 14:34 Current findings and case management discussed with the patient's oncologist, Dr. Jones. We agree that patient will received a 2 unit transfusion of packed RBCs and will be discharged home for outpatient clinic follow-up within the next 5 days. Patient agrees with this plan of treatment. - Vital Signs Vital signs: Temp Pulse Resp BP Pulse Ox 98.0 F 88 23 H 107/60 98 03/19/20 09:43 03/19/20 09:43 03/19/20 14:01 03/19/20 14:00 03/19/20 14:01 - Laboratory Result Diagrams: 03/19/20 12:35 03/19/20 12:35 Laboratory results interpreted by me: 03/19/20 03/19/20 03/19/20 12:35 12:35 12:35 WBC 412.5 H* RBC 1.83 L Hgb 5.3 L Hct 18.2 L MCV 99 H MCHC 29.4 L RDW 26.5 H Plt Count 44 L Seg Neuts % (Manual) 1 L Lymphocytes % (Manual) 98 H Monocytes % (Manual) 1 L Abs Lymphs (Manual) 404.3 H Abs Monocytes (Manual) 4.1 H Chloride 108 H BUN 32 H Est GFR ( Amer) 58 L Est GFR (MDRD) Non-Af 48 L Total Protein 6.2 L Crossmatch See Detail Discharge - Discharge Clinical Impression: CLL (chronic lymphocytic leukemia) Condition: Stable Disposition: HOME, SELF-CARE Additional Instructions: Return here as needed for new or worsening symptoms. Specifically you should come back if you become increasingly short of breath or develop high fever or sh aking chills. Follow-up in the clinic with Dr. Jones as previously scheduled. Prescriptions: Tramadol HCl [Ultram 50 mg Tablet] 50 mg PO Q4HP PRN #12 tab PRN Reason: Azithromycin [Zithromax 250 mg Tablet] 250 mg PO ASDIR PRN #6 tablet PRN Reason: Referrals: JERSEY HERNADEZ MD [Primary Care Provider] - Follow up as needed
--- NOTE | 2020-03-19 14:45 | RADIOLOGY REPORT (SQ) ---
EXAM DESCRIPTION: CHEST SINGLE VIEW IMAGES COMPLETED DATE/TIME: 03/19/2020 2:26 pm REASON FOR STUDY: cough COMPARISON: 10/03/2019 EXAM PARAMETERS: NUMBER OF VIEWS: One view. TECHNIQUE: Single frontal radiographic view of the chest acquired. RADIATION DOSE: NA LIMITATIONS: None. FINDINGS: LUNGS AND PLEURA: Filled of defined opacification in the right base laterally. MEDIASTINUM AND HILAR STRUCTURES: No masses. Contour normal. HEART AND VASCULAR STRUCTURES: Heart normal in size. Normal vasculature. BONES: No acute findings. HARDWARE: None in the chest. OTHER: No other significant finding. IMPRESSION: Cannot exclude a minimal right lower lobe pneumonia. TECHNICAL DOCUMENTATION: JOB ID: [id number] 2010 [employer]- All Rights Reserved Reading location - IP/workstation name: [email or web address]
[2020-03-19] MEDS ORDERED: CEFTRIAXONE INJ 1000 MG VIAL IV ONE (16:21)
--- NOTE | 2020-03-19 21:29 | EKG REPORT ---
SEVERITY:- ABNORMAL ECG - SINUS RHYTHM PROBABLE ANTEROSEPTAL INFARCT, AGE INDETERM : Confirmed by: Ayleen Bragg MD 19-Mar-2020 21:28:52
[2020-03-20 03:18] VITALS: BP 130/76
== END 2020-03-20 03:18 | disposition home or self-care (01) ==
LOC: ER 09:32
DX: C91.10 Chronic lymphocytic leukemia of B-cell type not having achieved remission (principal); D64.9 Anemia, unspecified; R53.83 Other fatigue; F17.200 Nicotine dependence, unspecified, uncomplicated; E78.00 Pure hypercholesterolemia, unspecified; I10 Essential (primary) hypertension; J44.9 Chronic obstructive pulmonary disease, unspecified
CPT/HCPCS: 93005; 36591; 99285; 96365; 86900; 86901; 36415; 36430; 86850; 85025; 80053; 86920; 71045; 93010; P9016; J0696; A9270; J1642

== ENCOUNTER 2020-06-19 16:31 | Emergency (ER) | payer MEDICARE ==
--- NOTE | 2020-06-19 17:11 | ER Document Report ---
ED Medical Screen (RME) - General Chief Complaint: Medical Complaint Stated Complaint: LEFT FLANK PAIN Time Seen by Provider: 06/19/20 17:04 Primary Care Provider: VINCENZO MUSE MD [Primary Care Provider] - Follow up as needed Mode of Arrival: Wheelchair Information source: Patient Notes: 69-year-old female presents to ED for complaint of cough left flank pain. She states that she has CLL and she ran out of her chemo medication on 31 May and she called to get refill and did not get an answer so she has not had any medicine since 31 May. She states she does have a appointment with Dr. Ludwig ordered June 28. She states she never used to have any pain with her leukemia except for in her leg. She states she does have a little bit of a cough with white sputum but no fevers. States she does smoke 1/2 pack a day and was told she had to quit smoking where she was going up with COPD. She states she does not smoke or do any drugs. She is alert oriented answering questions appropriately. I have greeted and performed a rapid initial assessment of this patient. A comprehensive ED assessment and evaluation of the patient, analysis of test results and completion of medical decision making process will be conducted by an additional ED providers. TRAVEL OUTSIDE OF THE [place] IN LAST 30 DAYS: No - Related Data Allergies/Adverse Reactions: No Known Allergies Allergy (Verified 09/03/18 12:47) Past Medical History - Past Medical History Cardiac Medical History: Reports: Hx Hypercholesterolemia, Hx Hypertension Pulmonary Medical History: Reports: Hx COPD Renal/ Medical History: Denies: Hx Peritoneal Dialysis Malignancy Medical History: Reports: Hx Leukemia - Chronic lymphocytic leukemia Past Surgical History: Reports: Hx Gynecologic Surgery - ectopic , Hx Hysterectomy, Hx Vascular Surgery - PORT A CATH - Immunizations Hx Diphtheria, Pertussis, Tetanus Vaccination: Yes Physical Exam - Vital signs Vitals: Temp Pulse Resp BP Pulse Ox 99.3 F 100 22 H 161/83 H 95 06/19/20 17:06/19/20 17:06/19/20 17:03 06/19/20 17:03 06/19/20 17:03 Course - Vital Signs Vital signs: Temp Pulse Resp BP Pulse Ox 99.3 F 100 22 H 161/83 H 95 06/19/20 17:03 06/19/20 17:03 06/19/20 17:03 06/19/20 17:03 06/19/20 17:03 Doctor's Discharge - Discharge Referrals: VINCENZO MUSE MD [Primary Care Provider] - Follow up as needed
--- NOTE | 2020-06-19 18:05 | RADIOLOGY REPORT (SQ) ---
EXAM DESCRIPTION: CHEST 2 VIEWS IMAGES COMPLETED DATE/TIME: 06/19/2020 5:41 pm REASON FOR STUDY: Cough white sputum COMPARISON: 03/19/2020 EXAM PARAMETERS: NUMBER OF VIEWS: two views TECHNIQUE: Digital Frontal and Lateral radiographic views of the chest acquired. RADIATION DOSE: NA LIMITATIONS: none FINDINGS: LUNGS AND PLEURA: Small right-sided pleural effusion. No focal consolidation. No pneumot horax. MEDIASTINUM AND HILAR STRUCTURES: No masses or contour abnormalities. HEART AND VASCULAR STRUCTURES: Heart normal size. No evidence for failure. BONES: No acute findings. HARDWARE: Port-A-Cath terminates in the region of the superior vena cava. OTHER: No other significant finding. IMPRESSION: Small right-sided pleural effusion. No focal consolidation. TECHNICAL DOCUMENTATION: JOB ID: [id number] [employer]- All Rights Reserved Reading location - IP/workstation name: [email or web address]
--- NOTE | 2020-06-19 19:51 | RADIOLOGY REPORT (SQ) ---
EXAM DESCRIPTION: CT CHEST WITHOUT; CT ABD/PELVIS NO ORAL OR IV IMAGES COMPLETED DATE/TIME: 06/19/2020 6:04 pm REASON FOR STUDY: SOB AND CHEST PAIN; Left flank pain. CLL. COMPARISON: Chest radiograph same date. PET CT, 11/10/2018. CT abdomen and pelvis 06/01/2014. TECHNIQUE: CT scan of the chest performed without intravenous contrast using helical scanning techni que. Images reviewed with lung, soft tissue and bone windows. Reconstructed coronal and sagittal MPR images reviewed. All images stored on PACS. CT scan of the abdomen and pelvis performed without intravenous contrast and withoutoral contrast usi ng helical scanning technique with dynamic intravenous contrast injection. Images reviewed with lung , soft tissue and bone windows. Reconstructed coronal and sagittal MPR images reviewed. All images stored on PACS. All CT scanners at this facility use dose modulation, iterative reconstruction, and/or weight based d osing when appropriate to reduce radiation dose to as low as reasonably achievable (ALARA). [facility]: Dose Right [facility]: CareDose [facility]: Dose Right [facility]: Teradose 4D [facility]: Smart Yun Yun RADIATION DOSE: CT Rad equipment meets quality standard of care and radiation dose reduction techniq ues were employed. CTDIvol: 4.5 - 6.7 mGy. DLP: 463 mGy-cm. mGy. LIMITATIONS: No technical limitations. FINDINGS: CHEST: AXILLAE: Prominent lymph nodes in the left axilla are stable from prior. No new adenopathy. CHEST WALL: No masses. No subcutaneous air. LUNGS: Trachea has normal caliber and appearance. No bronchial wall thickening or bronchiectasis. B ackground mild pulmonary emphysema. No focal consolidation or significant ground-glass attenuation. PLEURA: No effusion or pneumothorax. THYROID: No masses or significant asymmetry. HILAR AND MEDIASTINAL STRUCTURES: Paraesophageal lymph node is stable from prior. No upper mediastin al or hilar adenopathy. AORTA AND GREAT VESSELS: No aneurysm. HEART: Normal size. Small pericardial effusion/ pericardial thickening. HARDWARE AND LIFELINES: Left MediPort catheter with tip in the lower SVC. BONES: No significant finding. OTHER: No other significant finding. ABDOMEN AND PELVIS: LIVER: Normal size and contour. Evaluation of the parenchyma is limited without IV contrast. SPLEEN: Interval development of splenomegaly with spleen measuring 11 x 7 cm on axial images by 13.8 cm craniocaudal at the midclavicular line. Previously the spleen measured 6.9 x 4.7 x 7.5 cm when me asured similarly. There is new wedge shaped hypodense attenuation in the splenic parenchyma which ma y represent a splenic laceration. No evidence of subcapsular hematoma or perisplenic fluid. PANCREAS: Not well visualized. GALLBLADDER: No identified stones by CT criteria. No inflammatory changes to suggest cholecystitis. ADRENAL GLANDS: No significant masses or asymmetry. RIGHT KIDNEY AND URETER: No solid masses. Assessment limited by lack of IV contrast. No significant c alcification. No hydronephrosis or hydroureter. LEFT KIDNEY AND URETER: No solid masses. Assessment limited by lack of IV contrast. No significant ca lcification. No hydronephrosis or hydroureter. AORTA AND VESSELS: No aneurysm. RETROPERITONEUM: Bulky retroperitoneal and mesenteric lymphadenopathy appears essentially stable from previous PET scan in October 2018. Evaluation and measuring is limited due to lack of IV and oral contr ast. APPENDIX: Normal. LARGE AND SMALL BOWEL: Colonic diverticulosis without evidence of diverticulitis. No ascites or pneu moperitoneum. ABDOMINAL WALL: No hernia or masses. PERITONEAL CAVITY: No free air. No free fluid. No peritoneal implants or masses. PELVIS: No mass or free fluid. Normal bladder. BONES: No significant or acute findings. OTHER: No other significant finding. IMPRESSION: 1. Interval development of moderate splenomegaly with possible parenchymal laceration. No evidence o f subcapsular hematoma or perisplenic fluid although evaluation is somewhat limited without IV contra st. No free fluid in the abdomen or pelvis. 2. Bulky retroperitoneal and mesenteric adenopathy appears stable from prior PET scan. Evaluation is somewhat limited without IV or oral contrast. 3. Mild pulmonary emphysema. No acute pulmonary disease. 4. Colonic diverticulosis without evidence of diverticulitis. COMMENT: Findings discussed with Verenice Samuels on 06/19/2020 at 1940 hours Eastern time. TECHNICAL DOCUMENTATION: JOB ID: [id number] Quality ID # [id number]: Final reports with documentation of one or more dose reduction techniques (e.g., Au tomated exposure control, adjustment of the mA and/or kV according to patient size, use of iterative reconstruction technique) 2010 [employer]- All Rights Reserved Reading location - IP/workstation name: [email or web address]
[2020-06-19 20:31] LABS: HEMATOCRIT 32.3 % (36.0-47.0); HEMOGLOBIN 10.3 g/dL (12.0-15.5); MEAN CORPUSCULAR HEMOGLOBIN 30.1 pg (27.0-33.4); MEAN CORPUSCULAR HGB CONC 31.9 g/dL (32.0-36.0); MEAN CORPUSCULAR VOLUME 95 fl (80-97); RED BLOOD COUNT 3.42 10^6/uL (3.72-5.28); RED CELL DISTRIBUTION WIDTH 17.5 % (11.5-14.0)
[2020-06-19 20:36] LABS: ALBUMIN 3.2 g/dL (3.5-5.0); ALKALINE PHOSPHATASE 107 U/L (38-126); ASPARTATE AMINO TRANSFERASE 23 U/L (14-36); BILIRUBIN,TOTAL 0.7 mg/dL (0.2-1.3); BLOOD UREA NITROGEN 16 mg/dL (7-20); CALCIUM 10.1 mg/dL (8.4-10.2); CARBON DIOXIDE 27 mmol/L (22-30); CHLORIDE 107 mmol/L (98-107); GLUCOSE 107 mg/dL (75-110); POTASSIUM 3.7 mmol/L (3.6-5.0); TOTAL PROTEIN 5.4 g/dL (6.3-8.2)
[2020-06-19 20:37] LABS: INTERNATIONAL RATION (INR) 0.95; PARTIAL THROMBOPLASTIN TIME 23.5 SEC (23.5-35.8); PROTHROMBIN TIME 12.9 SEC (11.4-15.4)
[2020-06-19 20:44] LABS: ANION GAP 4 (5-19)
[2020-06-19 21:03] LABS: PLATELET COUNT 87 10^3/uL (150-450)
[2020-06-19 21:05] LABS: WHITE BLOOD COUNT 288.3 10^3/uL (4.0-10.5)
[2020-06-19 21:08] LABS: ABSOLUTE MONOCYTES # (MANUAL) 2.9 10^3/uL (0.1-1.4); BASOPHILS % (MANUAL) 0 % (0-2); EOSINOPHILS % (MANUAL) 0 % (0-6); LYMPHOCYTES % (MANUAL) 93 % (13-45); MONOCYTES % (MANUAL) 1 % (3-13); SEGMENTED NEUTROPHILS % (MAN) 0 % (42-78); TOTAL CELLS COUNTED 100
[2020-06-19 21:12] LABS: IMMATURE MONONUCLEAR% (MANUAL) 2 % (0)
[2020-06-19 21:13] LABS: ANISOCYTOSIS 1+; OVALOCYTES SLIGHT; PLATELET COMMENT DECREASED; POIKILOCYTOSIS 1+; TEAR DROP CELLS SLIGHT
--- NOTE | 2020-06-19 21:13 | ER Document Report ---
ED GI/ - General Chief Complaint: Flank Pain Stated Complaint: LEFT FLANK PAIN Time Seen by Provider: 06/19/20 17:04 Primary Care Provider: JERSEY ENGLISH MD [ACTIVE STAFF] - 06/21/20 VINCENZO MUSE MD [Primary Care Provider] - 06/21/20 Mode of Arrival: Wheelchair Notes: Patient is a 69-year-old female presents emergency department with a chief complaint of left mid abdominal pain and a cough. Patient states that her pain started about 3 days ago. Patient states that she ran out of her chemotherapy medicine on May 31 and is supposed to corn picker more medication in the beginning of June. She has CLL. She also has history of hypertension. Patient is an everyday smoker. Denies any falling. TRAVEL OUTSIDE OF THE [place] IN LAST 30 DAYS: No - Related Data Allergies/Adverse Reactions: No Known Allergies Allergy (Verified 09/03/18 12:47) Past Medical History - General Information source: Patient - Social History Smoking Status: Current Every Day Smoker Family History: Reviewed & Not Pertinent, DM - Past Medical History Cardiac Medical History: Reports: Hx Hypercholesterolemia, Hx Hypertension Pulmonary Medical History: Reports: Hx COPD Renal/ Medical History: Denies: Hx Peritoneal Dialysis Malignancy Medical History: Reports: Hx Leukemia - Chronic lymphocytic leukemia Past Surgical History: Reports: Hx Gynecologic Surgery - ectopic , Hx Hysterectomy, Hx Vascular Surgery - PORT A CATH - Immunizations Hx Diphtheria, Pertussis, Tetanus Vaccination: Yes Review of Systems - Review of Systems Notes: REVIEW OF SYSTEMS: CONSTITUTIONAL : Denies recent illness. Denies recent unintentional weight loss. Denies fever, chills, or sweats. EENT: Denies eye, ear, throat, or mouth pain, discharge, or symptoms. Denies nasal or sinus congestion. CARDIOVASCULAR: Denies chest pain. RESPIRATORY: See HPI. GASTROINTESTINAL: See HPI. GENITOURINARY: Denies difficulty urinating, burning, blood in urine, urgency or frequency. MUSCULOSKELETAL: Denies joint pain or swelling. See HPI. SKIN: Denies rash, itchiness, or lesions HEMATOLOGIC : Denies easy bruising or bleeding. LYMPHATIC: Denies swollen, painful, enlarged glands. NEUROLOGICAL: Denies no numbness or tingling denies weakness. Denies headache. Denies altered mental status. Denies alteration in speech. PSYCHIATRIC: Denies stress, anxiety, alteration in sleep patterns, or depression. All other systems reviewed and negative. Physical Exam - Vital signs Vitals: Temp Pulse Resp BP Pulse Ox 99.3 F 100 22 H 161/83 H 95 06/19/20 17:03 06/19/20 17:03 06/19/20 17:03 06/19/20 17:03 06/19/20 17:03 - Notes Notes: PHYSICAL EXAMINATION: GENERAL: Appears well, healthy, well-nourished, no acute distress. HEAD: Normocephalic, atraumatic. EYES: PERRL, conjunctiva normal, all extraocular movements intact, sclera nonicteric ENT: Moist mucous membranes. NECK: Supple, no noticeable swelling, redness, rash. Normal range of motion. LUNGS: Coarse breath sounds noted throughout all lung laurent. CARDIOVASCULAR: S1-S2, regular rate, regular rhythm. Radial pulses 2+, normal. ABDOMEN: Normoactive bowel sounds. Soft, nontender, no guarding, no rebound tenderness, and no masses palpated. EXTREMITIES: Normal strength and range of motion, no pitting or edema. No cyanosis. NEUROLOGICAL: Moves all extremities upon command. Strength 5/5 in all extremities. PSYCH: Normal mood, normal affect. SKIN: Warm, dry. No rash, lesions, ulcerations noted. Normal skin turgor. Course - Re-evaluation Re-evalutation: 06/19/20 21:[address] Brantley and discussed this case with him. I then spoke with Dr. Hannon, he states at this point, we will just watch for the splenic rupture. White blood cell count is 188,000, which is actually better than her previous visit when she had outpatient labs about a month ago. Will call Dr. Muse for admission. Also place the patient on meropenem. 06/19/20 21:[address] Muse and he wants to have the patient transferred to a tertiary facility. Spoke with Dr. Quintana, my attending. He spoke with Dr. Muse and he still does not feel comfortable taking care of the patient. Will attempt to Dr. Hannon. 06/19/20 22:[address] Hannon again. He states that it would be better to have a CT with IV contrast ordered to see if there is an actual laceration. 06/19/20 23:[address] Hannon, he states that the splenic lacerations noted on her CT are an incidental finding. He states that they are most likely due to the patient's CLL. I then spoke with Dr. Brantley. At this time we feel be more beneficial for patient to go home on Levaquin, as there is no definite pneumonia noted on her chest x-ray or CT. She is to follow-up with Dr. Serrano and with Dr. English on Sunday. She is in agreement with this plan. Follow-up precautions were given. Verbal discharge instructions were given to the patient. They verbalized understanding. They are stable for discharge. - Vital Signs Vital signs: Temp Pulse Resp BP Pulse Ox 98.3 F 100 19 136/69 H 96 06/20/20 01:13 06/19/20 17:03 06/20/20 01:01 06/20/20 01:01 06/20/20 01:01 - Laboratory Results Result Diagrams: 06/19/20 20:00 06/19/20 20:00 Laboratory Results Interpreted: 06/19/20 06/19/20 20:00 20:00 WBC 288.3 H* RBC 3.42 L Hgb 10.3 L Hct 32.3 L MCHC 31.9 L RDW 17.5 H Plt Count 87 L Seg Neuts % (Manual) 0 L Lymphocytes % (Manual) 93 H Monocytes % (Manual) 1 L Immature Leukocytes % 2 H Abs Neuts (Manual) 0.0 L Abs Lymphs (Manual) 279.0 H Abs Monocytes (Manual) 2.9 H Anion Gap 4 L Est GFR ( Amer) 54 L Est GFR (MDRD) Non-Af 45 L Total Protein 5.4 L Albumin 3.2 L Critical Laboratory Results Reviewed: Yes Attending or Supervising Physician who Reviewed Labs: HELLEN QUINTANA IV - WBC count - Radiology Results Radiology Results Interpreted: splenic lacerations Critical Radiology Results Reviewed: Yes Attending or Supervising Physician who Reviewed Radiology: HELLEN QUINTANA IV Discharge - Discharge Clinical Impression: Splenomegaly, Cough, CLL (chronic lymphocytic leukemia) Condition: Stable Disposition: HOME, SELF-CARE Additional Instructions: You were seen today in the emergency department for abdominal pain on the left side. You have an enlarged spleen. Please take it easy the next couple of days and avoid heavy lifting or strenuous activity. Take the antibiotics as pre scribed. You can also take the pain medication as prescribed. Follow-up with Dr. Muse and Dr. English first thing Sunday. Use the albuterol inhaler with the nebulizer 1 to 2 puffs every 4-6 hours for shortness of breath/wheezing. Prescriptions: Levofloxacin [Levaquin 750 mg Tablet] 750 mg PO DAILY #5 tablet Oxycodone HCl 5 mg PO Q6HP PRN #10 capsule PRN Reason: Referrals: VINCENZO MUSE MD [Primary Care Provider] - 06/21/20 JERSEY ENGLISH MD [ACTIVE STAFF] - 06/21/20
[2020-06-19] MEDS ORDERED: MEROPENEM 1 GM VIAL IV ONE (21:33)
[2020-06-19 22:07] LABS: APPEARANCE,URINE CLEAR; BILIRUBIN,URINE NEGATIVE (NEGATIVE); COLOR,URINE YELLOW; GLUCOSE, URINE NEGATIVE (NEGATIVE); KETONES,URINE NEGATIVE (NEGATIVE); LEUKOCYTE ESTERASE,URINE NEGATIVE (NEGATIVE); NITRITE,URINE NEGATIVE (NEGATIVE); PROTEIN,URINE NEGATIVE (NEGATIVE); URINE SPECIFIC GRAVITY 1.017; UROBILINOGEN,URINE NEGATIVE mg/dL (<2.0)
[2020-06-19] MEDS ORDERED: MORPHINE SULFATE 10 MG/ML INJ IV ONE (23:31)
[2020-06-19] MEDS ORDERED: ACETAMINOPHEN 325 MG TABLET PO ONE (23:31)
--- NOTE | 2020-06-19 23:36 | RADIOLOGY REPORT (SQ) ---
CLINICAL HISTORY: spleen lac or lymphoma? COMPARISON: 06/19/2020. TECHNIQUE: CT ABDOMEN PELVIS WITH IV CONTRAST on 06/19/2020 10:10 PM [employer] This exam was performed according to our departmental dose-optimization program, which includes automated exposure control, adjustment of the mA and/or kV according to patient size and/or use of iterative reconstruction technique. FINDINGS: Lower lungs are clear. Abdomen: The liver is normal in appearance. There is no biliary dilatation. Gallbladder is normal in appearance. There is an enlarged distal periaortic lymph node measuring at least 2.4 cm. The spleen is enlarged measuring at least 14 cm. There are curvilinear hypodensities in the posterior lateral periphery of the upper pole of the spleen as well as in the inferior aspect. Adrenal glands are poorly seen. Kidneys are mildly atrophic. Abdominal aorta is normal in course and caliber without aneurysm. There is no free air. There are bulky mid and upper retroperitoneal lymph nodes measuring up to 5.2 cm. Pelvis: There is no bowel obstruction. Urinary bladder is unremarkable. There is no free fluid. Appendix is not well seen. There are multiple borderline bilateral pelvic and inguinal lymph nodes. Skeleton: There are no acute osseous findings. No suspicious bony lesions. IMPRESSION: Continued findings of extensive retroperitoneal adenopathy as well as splenomegaly, consistent with lymphoma. The curvilinear lucencies in the spleen are unchanged but are overall indeterminate. The findings still may relate to splenic lacerations if there has been history of trauma, although there is no perisplenic or free pelvic fluid.
[2020-06-20] MEDS ORDERED: IPRATROPIUM/ALBUTEROL 0.5-2.5 MG/3 ML AMPUL NEB ONE (00:11)
[2020-06-20] MEDS ORDERED: ALBUTEROL SULFATE HFA (90 MCG/PUFF) 8 GM MDI (1 MDI/ER DISP) IH PRN (00:56)
[2020-06-20 01:13] VITALS: BP 136/69
== END 2020-06-20 01:30 | disposition home or self-care (01) ==
LOC: ER 16:31
DX: R16.1 Splenomegaly, not elsewhere classified (principal); C91.10 Chronic lymphocytic leukemia of B-cell type not having achieved remission; R10.9 Unspecified abdominal pain; R05 Cough; E78.00 Pure hypercholesterolemia, unspecified; I10 Essential (primary) hypertension; J44.9 Chronic obstructive pulmonary disease, unspecified; F17.200 Nicotine dependence, unspecified, uncomplicated; Z20.828 Contact with and (suspected) exposure to other viral communicable diseases
CPT/HCPCS: 94640; 99285; 96375; 96365; 36415; 87040; 87086; 85025; 85610; 85730; 0241U ×4; 80053; 81001; 71046; 71250; 74176; 74177; A9270 ×2; J2270; J2185; J1642; C9803; J3490